=== PATIENT | female | born 1970 | race American Indian/Alaskan Native ===

== ENCOUNTER 2017-10-12 17:21 | Emergency (ER) | payer OTHER ==
[2017-10-12] MEDS ORDERED: TYLENOL PO ONE (20:35)
--- NOTE | 2017-10-12 20:36 | Emergency Department Report ---
ED General Adult HPI - General Chief complaint: Extremity Injury, Upper Stated complaint: R ARM PAIN/ WEAKNESS Time Seen by Provider: 10/12/17 20:07 Source: patient Mode of arrival: Ambulatory Limitations: No Limitations - History of Present Illness Initial comments: This is a 47-year-old female who was previously unknown to this provider, she is right-hand dominant, and works as a biomedical specialist. Her primary care doctor is Dr. Ruth Pickering. Past medical history includes obesity hypothyroidism, bariatric surgery. Patient presents to the ER with 1 week of nontraumatic right paracervical and trapezius pain which intermittently involves the right upper extremity. The pain is sharp, and increases with range of motion and rest. There is no midline neck pain, there is no chest pain, shortness of breath abdominal pain, patient denies weakness, numbness, bladder or bowel retention/incontinence. -: Gradual, days(s) Location: right, upper extremity Radiation: distal Quality: burning, stabbing Consistency: constant Improves with: rest Worsens with: movement Associated Symptoms: denies other symptoms. denies: confusion, chest pain, cough, diaphoresis, fever/chills, headaches, loss of appetite, malaise, nausea/ vomiting, rash, seizure, shortness of breath, syncope, weakness - Related Data Previous Rx's Medication Instructions Recorded Last Taken Type Acetaminophen [Tylenol Arthritis] 650 mg PO Q6HR PRN #30 tablet.er 10/12/17 Unknown Rx Allergies Allergy/AdvReac Type Severity Reaction Status Date / Time Sulfa (Sulfonamide AdvReac Rash Verified 10/12/17 17:50 Antibiotics) ED Review of Systems ROS: Stated complaint: R ARM PAIN/ WEAKNESS Other details as noted in HPI ED Past Medical Hx - Past Medical History Previous Medical History?: Yes Additional medical history: hypothyroid - Surgical History Past Surgical History?: Yes Additional Surgical History: thyroid,bariatric - Social History Smoking Status: Never Smoker Substance Use Type: None - Medications Home Medications: Home Medications Medication Instructions Recorded Confirmed Last Taken Type Acetaminophen [Tylenol Arthritis] 650 mg PO Q6HR PRN #30 tablet.er 10/12/17 Unknown Rx ED Physical Exam - General Limitations: No Limitations General appearance: alert, in no apparent distress - Head Head exam: Present: atraumatic, normocephalic - Eye Eye exam: Present: normal appearance, EOMI. Absent: nystagmus - ENT ENT exam: Present: normal exam, normal orophraynx, mucous membranes moist, normal external ear exam - Neck Neck exam: Present: normal inspection, full ROM - Respiratory Respiratory exam: Present: normal lung sounds bilaterally. Absent: respiratory distress - Cardiovascular Cardiovascular Exam: Present: regular rate, normal rhythm, normal heart sounds. Absent: bradycardia, tachycardia, irregular rhythm, systolic murmur, diastolic murmur, rubs, gallop - GI/Abdominal GI/Abdominal exam: Present: soft, normal bowel sounds. Absent: distended, tenderness, guarding, rebound, rigid, pulsatile mass - Extremities Exam Extremities exam: Present: normal inspection, full ROM, normal capillary refill , other (2+ pulses noted in the bilateral upper extremities. The compartments are soft. There is no redness, pus, streaking or vesicles noted. 5 out of 5 strength bilateral upper extremities, sensation intact to light touch, pinch, proprioception in the bilateral upper extremities. Sensation intact to light touch pinch in the bilateral lower extremities. Dorsi and plantar flexion intact in the bilateral lower extremities.). Absent: pedal edema, joint swelling, calf tenderness - Back Exam Back exam: Present: normal inspection, full ROM. Absent: paraspinal tenderness , vertebral tenderness - Neurological Exam Neurological exam: Present: alert, oriented X3, CN II-XII intact, normal gait, other (Extraocular movements intact. Tongue midline. No facial droop. Facial sensation intact to light touch in the V1, V2, V3 distribution bilaterally. 5 and 5 strength in 4 extremities.. Sensation is intact to light touch in 4 extremities.). Absent: motor sensory deficit - Psychiatric Psychiatric exam: Present: normal affect, normal mood - Skin Skin exam: Present: warm, dry, intact, normal color. Absent: rash ED Course Vital Signs 10/12/17 17:45 Temperature 98.2 F Pulse Rate 106 H Respiratory 16 Rate Blood Pressure 156/94 O2 Sat by Pulse 98 Oximetry ED Medical Decision Making - Lab Data Vital Signs 10/12/17 17:45 Temperature 98.2 F Pulse Rate 106 H Respiratory 16 Rate Blood Pressure 156/94 O2 Sat by Pulse 98 Oximetry - Medical Decision Making Differential diagnosis, including but not limited to: Cervical radiculopathy muscular pain Assessment and plan: 47-year-old female with probable cervical radiculopathy. Her history and physical do not suggest epidural compression syndrome or spinal cord compression at this time. Sensation intact to light touch, pinprick, proprioception, and she has appropriate strength and sensation in the bilateral upper extremities, including intact sensation to the deltoid, median, radial, ulnar distribution. Unfortunately the patient has a history of bariatric surgery, and is therefore not a suitable candidate for NSAIDs. Her primary care doctor has ordered prescribed her multiple sedating medications, including Flexeril and tramadol. Extensive in discussion with patient regarding need to follow up with outpatient primary care, pain specialist or spine surgery for probable physical therapy. Return precautions were reviewed. At the time of discharge, patient' s tachycardia had resolved. Critical care attestation.: If time is entered above; I have spent that time in minutes in the direct care of this critically ill patient, excluding procedure time. ED Disposition Clinical Impression: Neck pain on right side Disposition: [id number] TO HOME OR SELFCARE Is pt being admited?: No Does the pt Need Aspirin: No Condition: Stable Instructions: Cervical Radiculopathy (ED) Additional Instructions: Rest, and avoid heavy lifting. Avoid strenuous physical activities. Symptoms most likely coming from pinched nerve in the neck. This will likely require multiple interventions to improve, including physical therapy, possible injections, and pain medication by mouth. Follow up within the next 7-10 days with either her primary care doctor, [facility] specialist, or pain specialist for initiation of outpatient physical therapy. Take the significant pain medication as directed. If taking tramadol or Flexeril, which were prescribed to by her primary care doctor, do not drive, consume alcohol, or make important decisions as these medications are sedating. Do not combine these medications with other sedating medications. Return to the ER right away with new pain, worsened pain, migration of pain, weakness numbness, unsteady gait, bladder or bowel retention/incontinence. Dr. Tang is a local pain specialist; Dr. Neri Medina is a local spine surgeon. Referrals: JARVIS PICKERING MD [Primary Care Provider] - 3-5 Days DENNIS TANG MD [Staff Physician] - 3-5 Days MARYSOL CANTU MD [Staff Physician] - 3-5 Days
[2017-10-12 20:42] VITALS: BP 156/102
== END 2017-10-12 20:58 | disposition home or self-care (01) ==
LOC: ED 17:21
DX: M54.2 Cervicalgia (principal); E03.9 Hypothyroidism, unspecified; Z88.2 Allergy status to sulfonamides
CPT/HCPCS: 99282